=== PATIENT | male | born 1975 | race Caucasian/White ===

== ENCOUNTER 2017-04-19 11:44 | Emergency (ER) | payer BC | END 2017-04-19 13:45 | disposition home or self-care (01) | LOC: ER 11:44 | DX: L72.3 Sebaceous cyst (principal); I10 Essential (primary) hypertension; F17.210 Nicotine dependence, cigarettes, uncomplicated; Z79.899 Other long term (current) drug therapy; Z88.2 Allergy status to sulfonamides | CPT/HCPCS: 96365; 96372; 99070; 99283-25 ==

== ENCOUNTER 2017-04-20 16:41 | Observation (INO) | payer BC ==
[~2017-04-20] VITALS: Ht 175.3 cm; Wt 110.0 kg
[2017-04-20 18:26] LABS: BASO % 0.2 % (0.2-1.2); EOS # 0.1 10_X3_uL (0.0-0.5); EOS % 0.5 % (0.8-7.0); GRAN # 8.6 10_X3_uL (1.8-5.4); GRAN % 76.8 % (34.0-67.9); HEMATOCRIT 44.7 % (40-51); HEMOGLOBIN 15.3 g/dL (13.7-17.5); LYMPH # 1.1 10_X3_uL (1.3-3.6); LYMPH % 9.3 % (21.8-53.1); MEAN CORPUSCULAR HEMOGLOBIN 31.6 pg (27.0-33.0); MEAN CORPUSCULAR HGB CONC 34.2 g/dL (32.0-36.0); MEAN CORPUSCULAR VOLUME 92.4 fL (79-92); MEAN PLATELET VOLUME 10.2 fl (7.5-11.5); MONO # 1.5 10_X3_uL (0.3-0.8); MONO % 13.2 % (5.3-12.2); PLATELET COUNT 248 x10_3/uL (163-337); RED BLOOD COUNT 4.84 x10_6/uL (4.6-6.1); RED CELL DISTRIBUTION WIDTH 13.3 % (11.6-14.4); WHITE BLOOD COUNT 11.3 x10_3/uL (4.2-9.1)
[2017-04-20 18:32] LABS: BLOOD UREA NITROGEN 15 mg/dL (7-18); CALCIUM 9.7 mg/dL (8.7-10.7); CARBON DIOXIDE 28 mmol/L (21-32); CREATININE 0.6 mg/dL (0.6-1.3); GLUCOSE,RANDOM 102 mg/dL (70-99); SODIUM 133 mmol/L (136-145)
[2017-04-20 18:33] LABS: POTASSIUM 4.7 mmol/L (3.5-5.1)
[2017-04-21 07:03] LABS: HEMATOCRIT 41.5 % (40-51); HEMOGLOBIN 13.8 g/dL (13.7-17.5); MEAN CORPUSCULAR HGB CONC 33.3 g/dL (32.0-36.0); MEAN CORPUSCULAR VOLUME 93.3 fL (79-92); MEAN PLATELET VOLUME 10.1 fl (7.5-11.5); RED BLOOD COUNT 4.45 x10_6/uL (4.6-6.1); RED CELL DISTRIBUTION WIDTH 13.2 % (11.6-14.4); WHITE BLOOD COUNT 9.6 x10_3/uL (4.2-9.1)
[2017-04-21 07:35] LABS: CALCIUM 9.1 mg/dL (8.7-10.7); CARBON DIOXIDE 28 mmol/L (21-32); CREATININE 0.8 mg/dL (0.6-1.3); GLUCOSE,RANDOM 110 mg/dL (70-99); SODIUM 136 mmol/L (136-145)
[2017-04-21 07:42] LABS: BLOOD UREA NITROGEN 20 mg/dL (7-18)
== END 2017-04-21 12:33 | disposition home or self-care (01) ==
LOC: ER 16:41 → MS 20:59
PROVIDERS: General Practice; ADMIT Family Medicine
PROC: 0H96XZZ Drainage of Back Skin, External Approach (ICD-10-PCS; principal; 2017-04-21)
DX: L72.3 Sebaceous cyst (principal); L03.312 Cellulitis of back [any part except buttock and flank]; I10 Essential (primary) hypertension; Z83.3 Family history of diabetes mellitus; Z80.9 Family history of malignant neoplasm, unspecified; Z82.49 Family history of ischemic heart disease and other diseases of the circulatory system; Z82.5 Family history of asthma and other chronic lower respiratory diseases; Z88.2 Allergy status to sulfonamides; Z79.899 Other long term (current) drug therapy
CPT/HCPCS: 36415; 71260; 80048; 85025; 87070; 96365; 99070; 99284-25; G0378; J7040; Q9967